=== PATIENT | male | born 1965 | race Caucasian/White ===

== ENCOUNTER 2018-10-09 08:30 | Outpatient (CLI) | payer BC ==
[2018-10-09] MEDS ORDERED: IBUP-1222 PO (09:10)
[2018-10-09] MEDS ORDERED: MULT-516 PO (09:10)
[2018-10-09] MEDS ORDERED: HYDR-3241 PO (09:10)
[2018-10-09] MEDS ORDERED: PREG75CA PO (09:10)
[2018-10-09] MEDS ORDERED: SIMV20TA3 PO (09:10)
== END 2018-10-09 23:59 | disposition home or self-care (01) ==
LOC: STAR 08:30
PROVIDERS: ATTEND Internal Medicine Geriatric Medicine
DX: Z02.9 Encounter for administrative examinations, unspecified (principal)

== ENCOUNTER 2018-10-14 06:21 | Day surgery (SDC) | payer BC ==
[~2018-10-14] VITALS: Ht 182.9 cm; Wt 93.0 kg
[~2018-10-14 06:21] MED LIST: HYDR-3241 PO; IBUP-1222 PO; MULT-516 PO; PREG75CA PO; SIMV20TA3 PO
[2018-10-14] MEDS ORDERED: LACTATED RINGERS 1,000 ML IV SCH (06:48)
[2018-10-14 06:52] VITALS: BP 152/90
[2018-10-14] MEDS ORDERED: PROPOFOL 10 MG/ML, 20ML ONE ×5 (08:56→09:47)
== END 2018-10-14 11:45 | disposition home or self-care (01) ==
LOC: OUT 06:21
PROVIDERS: ATTEND Internal Medicine Geriatric Medicine
DX: K29.50 Unspecified chronic gastritis without bleeding (principal); E78.5 Hyperlipidemia, unspecified; Z88.0 Allergy status to penicillin; Z88.8 Allergy status to other drugs, medicaments and biological substances; Z88.6 Allergy status to analgesic agent; Z88.5 Allergy status to narcotic agent
CPT/HCPCS: 43242; 88172; 88173; 88177; 88305; J2704